=== PATIENT | male | born 1950 | race Caucasian/White ===

== ENCOUNTER 2016-09-26 00:30 | Inpatient (IN) | payer MEDICARE, MEDICAID ==
[~2016-09-26] VITALS: Ht 165.1 cm; Wt 59.0 kg
[2016-09-26 00:54] LABS: BASOPHILS % (AUTO) 0.3 % (0.0-2.0); DIFF TOTAL % 100 %; EOSINOPHILS # (AUTO) 0.1 /CMM (0.0-0.7); EOSINOPHILS % (AUTO) 1.8 % (0.0-6.0); HEMATOCRIT 44 % (39-51); HEMOGLOBIN 14.5 g/dL (13.5-17.5); LYMPHOCYTES # (AUTO) 1.6 /CMM (0.8-4.8); LYMPHOCYTES % (AUTO) 19.7 % (20.0-44.0); MEAN CORPUSCULAR HEMOGLOBIN 30 PG (26.0-33.0); MEAN CORPUSCULAR HGB CONC 33 g/dl (31.0-36.0); MEAN CORPUSCULAR VOLUME 89 fL (80-96); MONOCYTES # (AUTO) 0.7 /CMM (0.1-1.30); MONOCYTES % (AUTO) 8.2 % (2.0-12.0); NEUTROPHILS # (AUTO) 5.6 /CMM (1.8-8.9); PLATELET COUNT (AUTO) 164 /CMM (150-450)
[2016-09-26 01:00] LABS: ADD UA MICROSCOPIC NO; KETONES,URINE NEGATIVE (NEGATIVE); LEUKOCYTE ESTERASE ,URINE NEGATIVE (NEGATIVE)
[2016-09-26 01:01] LABS: ANION GAP 8 (5-14); CALCIUM, SERUM 8.5 mg/dL (8.5-10.1); CARBON DIOXIDE 30 mmol/L (21-32); CHLORIDE 105 mmol/L (98-107); CREATININE 0.7 mg/dL (0.6-1.3); GFR 113 mL/min (>60); GLUCOSE 98 mg/dL (74-106); POTASSIUM 4.1 mmol/L (3.5-5.1); SODIUM SERUM 139 mmol/L (136-145); UREA NITROGEN, BLOOD 15 mg/dL (7-18)
[2016-09-26 01:02] LABS: CANNABINOID, URINE NEGATIVE (NEGATIVE); PHENCYCLIDINE SCREEN,URINE NEGATIVE (NEGATIVE)
[2016-09-26 01:07] LABS: ALANINE AMINOTRANSFERASE 34 U/L (12-78); ALBUMIN 3.6 g/dL (3.4-5.0); ASPARTATE AMINOTRANSFERASE 24 U/L (15-37); BILIRUBIN,DIRECT 0.1 mg/dL (0.0-0.2); BILIRUBIN,TOTAL 0.3 mg/dL (0.2-1.0); INDIRECT BILIRUBIN 0.2 mg/dL (0.0-1.1); TOTAL PROTEIN, SERUM 6.4 g/dL (6.4-8.2)
[2016-09-26 01:08] LABS: ACETAMINOPHEN 0 ug/ml (10-30); SALICYLATE 2.7 mg/dL (2.8-20.0)
[2016-09-26] MEDS ORDERED: MAGNESIUM HYDROXIDE 30 ML UDC PO PRN (02:30)
[2016-09-26] MEDS ORDERED: MAG HYDROX/AL HYDROX/SIMETH 30 ML UDC PO PRN (02:30)
[2016-09-26] MEDS ORDERED: LORAZEPAM 0.5 MG TABLET PO PRN (02:30)
[2016-09-26] MEDS ORDERED: TEMAZEPAM 7.5 MG CAPSULE PO PRN (02:30)
[2016-09-26 04:23] VITALS: BP 116/56
[2016-09-26] MEDS ORDERED: OLANZAPINE 10 MG VIAL IM STA (07:53)
[2016-09-26] MEDS ORDERED: LORAZEPAM INJ 2 MG/ML VIAL IM ONE (07:55)
[2016-09-26 08:11] VITALS: BP 105/68
[2016-09-26] MEDS ORDERED: OLANZAPINE 5 MG/TAB.RAPDIS PO PRN (13:30)
[2016-09-26 16:00] VITALS: BP 110/56
[2016-09-26 20:58] LABS: CHOLESTEROL 135 mg/dL (<200); HDL CHOLESTEROL 38 mg/dL (40-60); LDL 89 mg/dL (0-99); TRIGLYCERIDES 51 mg/dL (30-150)
[2016-09-27 08:00] VITALS: BP 117/57
[2016-09-27] MEDS: OLANZAPINE 5 MG/TAB.RAPDIS PO SCH ×2 (08:28→16:38)
[2016-09-27 16:00] VITALS: BP 108/69
[2016-09-28] MEDS: OLANZAPINE 5 MG/TAB.RAPDIS PO SCH ×2 (08:11→17:30)
[2016-09-28] MEDS: ACETAMINOPHEN 325 MG TABLET PO PRN (22:20)
[2016-09-29] MEDS: OLANZAPINE 5 MG/TAB.RAPDIS PO SCH ×2 (08:50→18:01)
[2016-09-29] MEDS: ACETAMINOPHEN 325 MG TABLET PO PRN (22:48)
[2016-09-30] MEDS: ACETAMINOPHEN 325 MG TABLET PO PRN (06:06)
[2016-09-30] MEDS: OLANZAPINE 5 MG/TAB.RAPDIS PO SCH ×2 (09:00→17:00)
[2016-10-01] MEDS: ACETAMINOPHEN 325 MG TABLET PO PRN (00:11)
[2016-10-01] MEDS: OLANZAPINE 5 MG/TAB.RAPDIS PO SCH ×2 (09:00→17:00)
[2016-10-01 11:19] VITALS: BP 95/42
[2016-10-01 16:00] VITALS: BP 122/67
[2016-10-02] MEDS: OLANZAPINE 5 MG/TAB.RAPDIS PO SCH ×2 (09:00→17:00)
[2016-10-02] MEDS: ACETAMINOPHEN 325 MG TABLET PO PRN (10:30)
[2016-10-02 16:00] VITALS: BP 111/57
[2016-10-03 08:56] VITALS: BP 130/70
[2016-10-03] MEDS: OLANZAPINE 5 MG/TAB.RAPDIS PO SCH ×2 (09:00→17:24)
[2016-10-03 16:51] VITALS: BP 119/60
[2016-10-04] MEDS: OLANZAPINE 5 MG/TAB.RAPDIS PO SCH ×2 (08:33→17:00)
[2016-10-04] MEDS ORDERED: TEMAZEPAM 15 MG CAPSULE PO PRN (22:00)
[2016-10-04] MEDS: ACETAMINOPHEN 325 MG TABLET PO PRN (23:27)
[2016-10-05] MEDS ORDERED: HALOPERIDOL LACTATE INJ 5 MG/ML VIAL ONE (01:05)
[2016-10-05] MEDS ORDERED: LORAZEPAM INJ 2 MG/ML VIAL ONE (01:05)
[2016-10-05] MEDS ORDERED: diphenhydrAMINE HCL 50 MG/ML VIAL ONE (01:06)
[2016-10-05] MEDS ORDERED: HALOPERIDOL LACTATE INJ 5 MG/ML VIAL IM ONE (01:30)
[2016-10-05] MEDS ORDERED: diphenhydrAMINE HCL 50 MG/ML VIAL IM ONE (01:30)
[2016-10-05] MEDS ORDERED: LORAZEPAM INJ 2 MG/ML VIAL IM ONE (01:30)
[2016-10-05 08:00] VITALS: BP 100/61
[2016-10-05] MEDS: OLANZAPINE 5 MG/TAB.RAPDIS PO SCH ×2 (08:55→17:00)
[2016-10-05] MEDS ORDERED: HALOPERIDOL LACTATE INJ 5 MG/ML VIAL IM STA (17:17)
[2016-10-05] MEDS ORDERED: LORAZEPAM INJ 2 MG/ML VIAL IM STA (17:18)
[2016-10-05] MEDS ORDERED: diphenhydrAMINE HCL 50 MG/ML VIAL IM STA (17:19)
[2016-10-06] MEDS: OLANZAPINE 5 MG/TAB.RAPDIS PO SCH (09:00)
[2016-10-06] MEDS ORDERED: BENZTROPINE MESYLATE (2MG/2ML) 2 MG/2 ML AMPUL IM PRN (15:30)
[2016-10-06] MEDS ORDERED: HALOPERIDOL DECANOATE IM 100 MG/ML AMPUL IM ONE (15:30)
[2016-10-06] MEDS ORDERED: HALOPERIDOL LACTATE INJ 5 MG/ML VIAL IM PRN (15:30)
[2016-10-06] MEDS: HALOPERIDOL 5 MG TABLET PO SCH ×2 (15:41→22:15)
[2016-10-06] MEDS: BENZTROPINE MESYLATE (1 MG) 1 MG TABLET PO SCH ×2 (15:41→22:16)
[2016-10-06 19:57] VITALS: BP 119/64
[2016-10-07] MEDS: ESCITALOPRAM OXALATE (10 MG) 10 MG TABLET PO SCH (08:22)
[2016-10-07] MEDS: HALOPERIDOL 5 MG TABLET PO SCH ×2 (08:22→20:46)
[2016-10-07] MEDS: BENZTROPINE MESYLATE (1 MG) 1 MG TABLET PO SCH ×2 (08:23→20:46)
[2016-10-07 08:57] VITALS: BP 138/65
[2016-10-08] MEDS: BENZTROPINE MESYLATE (1 MG) 1 MG TABLET PO SCH (08:11)
[2016-10-08] MEDS: ESCITALOPRAM OXALATE (10 MG) 10 MG TABLET PO SCH (08:11)
[2016-10-08] MEDS: HALOPERIDOL 5 MG TABLET PO SCH (08:12)
== END 2016-10-08 10:15 | disposition home or self-care (01) | DRG 885 ==
LOC: ER 00:36 → GPS 01:46
PROVIDERS: ADMIT Psychiatry & Neurology Psychiatry; ATTEND Contractor
DX: F29 Unspecified psychosis not due to a substance or known physiological condition (principal); R45.851 Suicidal ideations; F20.9 Schizophrenia, unspecified; F41.9 Anxiety disorder, unspecified; Z59.0 Homelessness; F32.9 Major depressive disorder, single episode, unspecified; F22 Delusional disorders; Z73.6 Limitation of activities due to disability
CPT/HCPCS: 36415; 80048-TC; 80061-TC; 80076-TC; 80305; 81000-TC; 85025-TC; 87081-TC; A4606; G0480; G6039-TC; J1200; J1630; J1631; J2060; J3490; Z7610

== ENCOUNTER 2023-11-28 11:46 | Inpatient (IN) | payer MEDICARE, OTHER ==
[~2023-11-28] VITALS: Ht 167.6 cm; Wt 63.5 kg
[~2023-11-28 11:46] MED LIST: LORA-259 PO; TEMA15CA5 PO
[2023-11-28 13:01] VITALS: O2SAT 97
[2023-11-28 13:03] LABS: BASOPHILS % (AUTO) 0.2 % (0.0-2.0); EOSINOPHILS # (AUTO) 0.2 K/uL (0.0-0.7); EOSINOPHILS % (AUTO) 2.3 % (0.0-6.0); HEMATOCRIT 44 % (39-51); HEMOGLOBIN 14.6 g/dL (13.5-17.5); LYMPHOCYTES # (AUTO) 1.8 K/uL (0.8-4.8); LYMPHOCYTES % (AUTO) 23.6 % (20.0-44.0); MEAN CORPUSCULAR HEMOGLOBIN 29 PG (26.0-33.0); MEAN CORPUSCULAR HGB CONC 34 g/dl (31.0-36.0); MEAN CORPUSCULAR VOLUME 87 fL (80-96); MONOCYTES # (AUTO) 0.6 K/uL (0.1-1.30); MONOCYTES % (AUTO) 7.6 % (2.0-12.0); NEUTROPHILS # (AUTO) 5.1 K/uL (1.8-8.9); NEUTROPHILS % (AUTO) 66.3 % (43.0-81.0); PLATELET COUNT (AUTO) 126 K/uL (150-450); RED BLOOD CELL COUNT(AUTO) 5.03 MIL/uL (4.5-6.0); RED CELL DISTRIBUTION WIDTH 14.4 % (11.5-15.0); WHITE BLOOD COUNT (AUTO) 7.7 K/uL (4.3-11.0)
[2023-11-28 13:11] LABS: CALCIUM, SERUM 8.7 mg/dL (8.5-10.1); CARBON DIOXIDE 33 mmol/L (21-32); CHLORIDE 102 mmol/L (98-107); CREATININE 0.7 mg/dL (0.6-1.3); GLUCOSE 80 mg/dL (74-106); POTASSIUM 4.2 mmol/L (3.5-5.1); SODIUM SERUM 137 mmol/L (136-145); UREA NITROGEN, BLOOD 18 mg/dL (7-18)
[2023-11-28 13:17] LABS: ACETAMINOPHEN 2 ug/ml (10-30); ALANINE AMINOTRANSFERASE 22 U/L (12-78); ALBUMIN 3.9 g/dL (3.4-5.0); ALCOHOL, BLOOD < 3 mg/dL (0-10); ALKALINE PHOSPHATASE 88 U/L (46-116); ASPARTATE AMINOTRANSFERASE 18 U/L (15-37); BILIRUBIN,DIRECT 0.1 mg/dL (0.0-0.2); BILIRUBIN,TOTAL 0.3 mg/dL (0.2-1.0); SALICYLATE 2.4 mg/dL (2.8-20.0)
[2023-11-28] MEDS ORDERED: SERT50TA PO (13:18)
[2023-11-28] MEDS ORDERED: MAGN400O6 PO (13:18)
[2023-11-28] MEDS ORDERED: IBUP-1957 PO (13:18)
[2023-11-28] MEDS ORDERED: DIVA500T4 PO (13:18)
[2023-11-28] MEDS ORDERED: DOCU250C14 PO (13:18)
[2023-11-28] MEDS ORDERED: MULT-213 PO (13:18)
[2023-11-28] MEDS ORDERED: ACET325T53 PO (13:18)
[2023-11-28] MEDS ORDERED: MAG30ORA PO (13:18)
[2023-11-28] MEDS ORDERED: NICO1PAT44 TD (13:18)
[2023-11-28] MEDS ORDERED: RISP2TAB5 PO (13:18)
[2023-11-28 13:26] LABS: APPEARANCE,URINE Clear (CLEAR); BILIRUBIN,URINE Negative (NEGATIVE); BLOOD, URINE Negative Ery/uL (NEGATIVE); COLOR,URINE YELLOW (YELLOW); KETONES,URINE Negative (NEGATIVE); LEUKOCYTE ESTERASE ,URINE Negative (NEGATIVE); NITRITE, URINE Negative (NEGATIVE); PROTEIN,URINE Negative (NEGATIVE); UGLUCOSE Negative (NEGATIVE); UROBILINOGEN,URINE 0.2 EU/dL (0.2)
[2023-11-28 14:02] LABS: AMPHETAMINE, URINE NEGATIVE (NEGATIVE); BARBITURATE, URINE NEGATIVE (NEGATIVE); BENZODIAZEPINE, URINE NEGATIVE (NEGATIVE); CANNABINOID, URINE NEGATIVE (NEGATIVE); COCCAINE, URINE NEGATIVE (NEGATIVE); OPIATE, URINE NEGATIVE (NEGATIVE); PHENCYCLIDINE SCREEN,URINE NEGATIVE (NEGATIVE)
[2023-11-28] MEDS ORDERED: MAGNESIUM HYDROXIDE 30 ML UDC PO PRN (17:00)
[2023-11-28] MEDS: BLOOD SUGAR DIAGNOSTIC 1 EACH STRIP IN ONE (17:19)
[2023-11-28] MEDS ORDERED: OLANZAPINE 10 MG VIAL IM ONE (18:00)
[2023-11-28] MEDS ORDERED: LORAZEPAM INJ 2 MG/ML VIAL IM ONE (18:00)
[2023-11-28] MEDS: ACETAMINOPHEN 325 MG TABLET PO PRN (20:16)
[2023-11-28] MEDS: LORAZEPAM 0.5 MG TABLET PO PRN (20:16)
[2023-11-28 20:56] VITALS: BP 133/76; TEMP 98.2; O2SAT 98
[2023-11-28 20:57] VITALS: BP 133/76; TEMP 98.2; O2SAT 99
[2023-11-29 08:00] VITALS: BP 108/67; TEMP 97.9; O2SAT 100
[2023-11-29] MEDS ORDERED: clonazePAM 1 MG TABLET PO SCH (09:00)
[2023-11-29] MEDS: clonazePAM 0.5 MG TABLET PO SCH (09:53)
[2023-11-29] MEDS: risperiDONE 1 MG TABLET PO SCH (09:53)
[2023-11-29 16:00] VITALS: BP 101/79; TEMP 98.6; O2SAT 98
[2023-11-29] MEDS: DIVALPROEX SODIUM 250 MG TABLET.DR PO SCH (16:16)
[2023-11-29] MEDS: hydrOXYzine PAMOATE 25 MG CAPSULE PO PRN (20:07)
[2023-11-29 21:23] VITALS: BP 108/61; TEMP 98.4; O2SAT 100
[2023-11-29] MEDS: MAG HYDROX/AL HYDROX/SIMETH 30 ML UDC PO PRN (22:42)
[2023-11-29] MEDS: ZOLPIDEM TARTRATE 5 MG TABLET PO PRN (23:26)
[2023-11-30 08:00] VITALS: BP 105/69; TEMP 98.7; O2SAT 99
[2023-11-30] MEDS: DOCUSATE SODIUM 250 MG CAPSULE PO SCH (08:19)
[2023-11-30] MEDS: NICOTINE PATCH (14MG) 14 MG PATCH.TD24 TD SCH (08:21)
[2023-11-30 08:22] LABS: CALCIUM, SERUM 8.2 mg/dL (8.5-10.1); CREATININE 0.8 mg/dL (0.6-1.3)
[2023-11-30] MEDS ORDERED: SERTRALINE HCL 50 MG TABLET PO SCH (09:00)
[2023-11-30 16:00] VITALS: BP 112/61; TEMP 98.7; O2SAT 98
[2023-11-30 20:56] VITALS: BP 98/59; TEMP 98.5; O2SAT 100
[2023-12-01 08:00] VITALS: BP 125/61; TEMP 98.2; O2SAT 97
[2023-12-01] MEDS: OLANZAPINE 10 MG VIAL IM ONE (15:16)
[2023-12-01 16:44] VITALS: BP 127/95; TEMP 98.1; O2SAT 98
[2023-12-01 20:00] VITALS: BP 119/83; TEMP 98.2; O2SAT 98
[2023-12-02 08:00] VITALS: BP 127/80; TEMP 98; O2SAT 100
[2023-12-02] MEDS: HALOPERIDOL 5 MG TABLET PO SCH (09:59)
[2023-12-02] MEDS: diphenhydrAMINE HCL 25 MG CAPSULE PO SCH (09:59)
[2023-12-02 16:00] VITALS: BP 129/86; TEMP 98; O2SAT 100
[2023-12-02 20:00] VITALS: BP 133/84; TEMP 97.6; O2SAT 99
[2023-12-03 08:00] VITALS: BP 127/63; TEMP 98; O2SAT 98
[2023-12-03 16:00] VITALS: BP 118/74; TEMP 97.5; O2SAT 99
[2023-12-03 20:00] VITALS: BP 124/69; TEMP 98; O2SAT 99
[2023-12-04 08:00] VITALS: BP 126/71; TEMP 97.6; O2SAT 98
[2023-12-04 16:00] VITALS: BP 121/60; TEMP 97.5; O2SAT 96
[2023-12-04 20:00] VITALS: BP 128/66; TEMP 97.9; O2SAT 97
[2023-12-05 08:00] VITALS: BP 139/55; TEMP 98.1; O2SAT 97
[2023-12-05 08:13] LABS: BASOPHILS % (AUTO) 0.2 % (0.0-2.0); EOSINOPHILS # (AUTO) 0.1 K/uL (0.0-0.7); EOSINOPHILS % (AUTO) 1.9 % (0.0-6.0); HEMATOCRIT 44 % (39-51); HEMOGLOBIN 14.8 g/dL (13.5-17.5); LYMPHOCYTES # (AUTO) 1.2 K/uL (0.8-4.8); LYMPHOCYTES % (AUTO) 20.4 % (20.0-44.0); MEAN CORPUSCULAR HEMOGLOBIN 30 PG (26.0-33.0); MEAN CORPUSCULAR HGB CONC 34 g/dl (31.0-36.0); MEAN CORPUSCULAR VOLUME 88 fL (80-96); MONOCYTES # (AUTO) 0.4 K/uL (0.1-1.30); MONOCYTES % (AUTO) 6.4 % (2.0-12.0); NEUTROPHILS # (AUTO) 4.1 K/uL (1.8-8.9); NEUTROPHILS % (AUTO) 71.1 % (43.0-81.0); PLATELET COUNT (AUTO) 92 K/uL (150-450); RED BLOOD CELL COUNT(AUTO) 4.97 MIL/uL (4.5-6.0); RED CELL DISTRIBUTION WIDTH 14.3 % (11.5-15.0); WHITE BLOOD COUNT (AUTO) 5.8 K/uL (4.3-11.0)
[2023-12-05 10:24] LABS: BASOPHILS % (MANUAL) 0 % (0.0-2.0); EOSINOPHILS % (MANUAL) 1 % (0-4); LYMPHOCYTES % (MANUAL) 21 % (16-48); MONOCYTES % (MANUAL) 8 % (0-11.0); NEUTROPHILS % (MANUAL) 70 (42-76); PLATELET ESTIMATE DECREASED; STOMATOCYTES 1+
[2023-12-05] MEDS: DIVALPROEX SODIUM 250 MG TABLET.DR PO SCH (13:32)
[2023-12-05] MEDS: HALOPERIDOL 5 MG TABLET PO SCH (13:32)
[2023-12-05 16:00] VITALS: BP 134/58; TEMP 98.1; O2SAT 95
[2023-12-05 21:00] VITALS: BP 104/55; TEMP 98.2; O2SAT 98
[2023-12-06 08:00] VITALS: BP 115/59; TEMP 97.7; O2SAT 100
[2023-12-06] MEDS: NICOTINE PATCH (21MG) 21 MG PATCH.TD24 TD SCH (08:50)
[2023-12-06 16:00] VITALS: BP 130/56; TEMP 97.9; O2SAT 97
[2023-12-06 20:00] VITALS: BP 130/72; TEMP 98.2; O2SAT 100
[2023-12-07 08:00] VITALS: BP 112/66; TEMP 98.1; O2SAT 99
[2023-12-07 16:00] VITALS: BP 110/60; TEMP 97.9; O2SAT 99
[2023-12-07 20:35] VITALS: BP 117/63; TEMP 98.1; O2SAT 100
[2023-12-08 08:00] VITALS: BP 121/97; TEMP 98.1; O2SAT 98
[2023-12-08 16:00] VITALS: BP 130/67; TEMP 97.5; O2SAT 100
[2023-12-08 20:00] VITALS: BP 127/80; TEMP 97.9; O2SAT 100
[2023-12-09 16:00] VITALS: BP 134/64; TEMP 98.6; O2SAT 97
[2023-12-09 20:00] VITALS: BP 84/37; TEMP 98.3; O2SAT 96
[2023-12-10 08:00] VITALS: BP 102/60; TEMP 97.5; O2SAT 100
== END 2023-12-10 13:40 | DRG 885 ==
LOC: ER 12:39 → GPS 14:56
PROVIDERS: ADMIT Psychiatry & Neurology Psychiatry
DX: F20.0 Paranoid schizophrenia (principal); F29 Unspecified psychosis not due to a substance or known physiological condition; J44.9 Chronic obstructive pulmonary disease, unspecified; M19.90 Unspecified osteoarthritis, unspecified site; Z20.822 Contact with and (suspected) exposure to COVID-19; Z91.148 Patient's other noncompliance with medication regimen for other reason; G47.00 Insomnia, unspecified; Z73.6 Limitation of activities due to disability; F32.A Depression, unspecified
CPT/HCPCS: 36415; 80048-TC; 80076-TC; 80164-TC; 85025-TC; G0480; J3490; Q0163; Q0177